=== PATIENT | male | born 1940 | race Caucasian/White ===

== ENCOUNTER 2018-12-11 19:29 | Emergency (ER) | payer MEDICARE, BC ==
[2018-12-11] MEDS ORDERED: Lidocaine 1% 10 ML MDV INJECT ONE (19:36)
[2018-12-11] MEDS ORDERED: Acetaminophen/HYDROcodone 325-5 MG Tab PO ONE (19:52)
--- NOTE | 2018-12-11 20:00 | EDM.PDOC ---
ED HPI GENERAL MEDICAL PROBLEM - General Chief Complaint: Laceration Stated Complaint: CUT THUMB ON RIGHT HAND Time Seen by Provider: 12/11/18 19:34 Source of Information: Reports: Patient History Limitations: Reports: No Limitations - History of Present Illness INITIAL COMMENTS - FREE TEXT/NARRATIVE: 78 y/o male presents to ER with cc right thumb laceration. He reports while using his table saw his hand slipped cutting his right thumb. He report having a tetanus in the past 3-4 years. He is right handed. He denies any numbness or tingling. He is accompanied by his . He is in no apparent distress. Onset: Today, Sudden Onset Date: 12/11/18 Onset Time: 19:00 Location: Reports: Upper Extremity, Right Quality: Reports: Ache Severity: Mild Improves with: Reports: None Worsens with: Reports: None Context: Reports: Trauma Associated Symptoms: Reports: No Other Symptoms Right Finger-Thumb Pain Score (Numeric/FACES): 8 - Related Data Allergies Allergy/AdvReac Type Severity Reaction Status Date / Time amoxicillin Allergy Other Verified 12/11/18 19:39 Penicillins Allergy Other Verified 12/11/18 19:39 Home Meds: Home Meds Aspirin 81 mg PO DAILY 08/08/18 [History] Ferrous Sulfate [Iron] 1 tab PO DAILY 08/08/18 [History] Multivitamin [Multivitamins] 1 each PO DAILY 08/08/18 [History] Ascorbate Calcium [Vitamin C] 500 mg PO DAILY 09/07/18 [History] Calcium Carbonate 500 mg PO DAILY 09/07/18 [History] Cinnamon Bark [Cinnamon] 1 tab PO DAILY 09/07/18 [History] [place]-3/DHA/Epa/Fish Oil [[place] 3 500 Softgel] 1,000 mg PO DAILY 09/07/18 [ History] Doxycycline [Vibramycin] 100 mg PO BID 7 Days #14 cap 12/11/18 [Rx] Hydrocodone/Acetaminophen [[place] 5-325 Tablet] 1 - 2 each PO Q6HR PRN 4 Days # 16 tablet 12/11/18 [Rx] Past Medical History Cardiovascular History: Reports: Heart Valve Replacement - Past Surgical History HEENT Surgical History: Reports: Tonsillectomy Cardiovascular Surgical History: Reports: Valve Replacement GI Surgical History: Reports: Appendectomy, Hernia, Inguinal, Hernia Repair/ Other Social & Family History - Tobacco Use Smoking Status *Q: Former Smoker Used Tobacco, but Quit: Yes Month/Year Tobacco Last Used: 40 years - Caffeine Use Caffeine Use: Reports: Coffee - Recreational Drug Use Recreational Drug Use: No ED ROS GENERAL - Review of Systems Review Of Systems: See Below Constitutional: Reports: No Symptoms HEENT: Reports: No Symptoms Respiratory: Reports: No Symptoms Cardiovascular: Reports: No Symptoms Endocrine: Reports: No Symptoms GI/Abdominal: Reports: No Symptoms : Reports: No Symptoms Musculoskeletal: Reports: Arm Pain, Other (right thumb) Skin: Reports: Wound, Other (right thumb laceration) Neurological: Reports: No Symptoms Psychiatric: Reports: No Symptoms Hematologic/Lymphatic: Reports: No Symptoms Immunologic: Reports: No Symptoms ED EXAM, SKIN/RASH Exam: See Below Exam Limited By: No Limitations General Appearance: Alert, WD/WN, No Apparent Distress Extremities: Normal Range of Motion, No Pedal Edema, Normal Capillary Refill, Other (right alatorre 4.0 thumb laceration, neurovascularly intact. ) Neurological: Alert, Oriented, CN II-XII Intact, Normal Cognition, Normal Gait Skin: Warm, Dry, Normal Color, No Rash, Other (right alatorre 4.0 cm thumb laceration. neurovascularly intact. ) ED SKIN PROCEDURES - Laceration/Wound Repair Right Upper Anterior Digit - 1st (Thumb) Lac/Wound length In cm: 4.0 Appearance: Irregular Distal NVT: Neuro & Vascular Intact Anesthetic Type: Local Local Anesthesia - Lidocaine (Xylocaine): 1% Plain Local Anesthetic Volume: 3cc Skin Prep: Providone-Iodine (Betadine) Exploration/Debridement/Repair: Wound Explored Closed with: Sutures Suture Size: 4-0 # of Sutures: 6 Suture Type: Prolene Sterile Dressing Applied: Nurse Tetanus Status Addressed: Yes Complications: No Course - Vital Signs Last Recorded V/S: Last Vital Signs Temp 98.2 F 12/11/18 19:36 Pulse 72 12/11/18 19:36 Resp 16 12/11/18 19:36 BP 176/95 H 12/11/18 19:36 Pulse Ox 99 12/11/18 19:36 - Orders/Labs/Meds Orders: Active Orders 24 hr Category Date Time Status Fingers Thumb Rt F5 [CR] Stat Exams 12/11/18 19:51 Taken Meds: Medications Discontinued Medications Generic Name Dose Route Start Last Admin Trade Name Freq PRN Reason Stop Dose Admin Hydrocodone Bitart/Acetaminophen 1 tab 12/11/18 19:52 12/11/18 20:05 [place] 325-5 Mg PO 12/11/18 19:53 1 tab ONETIME ONE Administration Lidocaine HCl 10 ml 12/11/18 19:36 12/11/18 19:51 Xylocaine 1% INJECT 12/11/18 19:37 10 ml ONETIME ONE Administration - Re-Assessments/Exams Free Text/Narrative Re-Assessment/Exam: 12/11/18 19:58 x-ray of right thumb revealed 78 y/o male presented to ER with cc right thumb laceration. He received [place] and laceration repair and his condition improved. I will discharge home with Doxycycline for outpatient antibiotic therapy and laceration repair instruction. Instructed him to follow up with his PCP in 7-10 days to have sutures removed. I will discharge home with [place] for pain. Instructed patient not to take this medication and drink, drive or operate machinery. He verbalized understanding and is comfortable with plan for discharge. He is stable at time of discharge. 12/11/18 21:34 Departure - Departure Time of Disposition: 21:32 Disposition: Home, Self-Care 01 Condition: Good Clinical Impression: Laceration of thumb with damage to nail Qualifiers: Encounter type: initial encounter Foreign body presence: without foreign body Laterality: right Qualified Code(s): S61.111A - Laceration without foreign body of right thumb with damage to nail, initial encounter - Discharge Information Prescriptions: Hydrocodone/Acetaminophen [[place] 5-325 Tablet] 1 - 2 each PO Q6HR PRN 4 Days # 16 tablet PRN Reason: thumb pain Doxycycline [Vibramycin] 100 mg PO BID 7 Days #14 cap Referrals: Krystal Ochoa, AUTOMATIC SERGING MACHINE OPERATOR [Primary Care Provider] - Forms: ED Department Discharge - My Orders Last 24 Hours: My Active Orders 12/11/18 19:51 Fingers Thumb Rt F5 [CR] Stat - Assessment/Plan Last 24 Hours: My Active Orders 12/11/18 19:51 Fingers Thumb Rt F5 [CR] Stat
--- NOTE | 2018-12-12 09:20 | CR ---
Right thumb: Three views centered to the right thumb were obtained. Comparison: No previous study. Soft tissue injury as well as small bony defect is noted off portion of the tuft of the distal thumb. Mild degenerative change is noted within the IP joint. No additional fracture or other bony abnormality is seen. Impression: 1. Injury within the distal thumb as noted above. 2. Slight degenerative change. Diagnostic code #3
== END 2018-12-11 21:46 | disposition home or self-care (01) ==
LOC: JD.ED 19:29
DX: S61.111A Laceration without foreign body of right thumb with damage to nail, initial encounter (principal); Z87.891 Personal history of nicotine dependence; Z79.82 Long term (current) use of aspirin; Z79.899 Other long term (current) drug therapy; W27.0XXA Contact with workbench tool, initial encounter
CPT/HCPCS: 12002; 73140; 99282; A9270; J2001; 99283

== ENCOUNTER 2018-12-20 20:12 | Emergency (ER) | payer MEDICARE, BC ==
--- NOTE | 2018-12-20 22:00 | EDM.PDOC ---
ED HPI GENERAL MEDICAL PROBLEM - General Chief Complaint: Wound Recheck Stated Complaint: THUMB LACERATION Time Seen by Provider: 12/20/18 20:33 Source of Information: Reports: Patient History Limitations: Reports: No Limitations - History of Present Illness INITIAL COMMENTS - FREE TEXT/NARRATIVE: 78 y/o male presents to ER for wound recheck of 6cm R thumb after having it repaired on 12/11/18 after cutting it using his table saw. The wound has opened up a bit since having sutures removed at the clinic here yesterday. There does look to have some redness and some mild pain. He denies any F/C, drainage from the wound. Neurovascularly intact, good ROM. He was put on Doxycycline 100mg BID x7 days and took it as prescribed, last dose was Monday. No other concerns at this time. - Related Data Allergies Allergy/AdvReac Type Severity Reaction Status Date / Time amoxicillin Allergy Other Verified 12/20/18 20:22 Penicillins Allergy Other Verified 12/20/18 20:22 Home Meds: Home Meds Hydrocodone/Acetaminophen [[place] 5-325 Tablet] 1 - 2 each PO Q6HR PRN 4 Days # 16 tablet 12/11/18 [Rx] Doxycycline [Vibramycin] 100 mg PO BID 10 Days #20 tab 12/20/18 [Rx] Mupirocin Oint [Bactroban Oint] 22 gm TP TID #1 tube 12/20/18 [Rx] Past Medical History Cardiovascular History: Reports: Heart Valve Replacement - Past Surgical History HEENT Surgical History: Reports: Tonsillectomy Cardiovascular Surgical History: Reports: Valve Replacement GI Surgical History: Reports: Appendectomy, Hernia, Inguinal, Hernia Repair/ Other Social & Family History - Tobacco Use Smoking Status *Q: Never Smoker Second Hand Smoke Exposure: No - Caffeine Use Caffeine Use: Reports: Coffee - Recreational Drug Use Recreational Drug Use: No ED ROS GENERAL - Review of Systems Review Of Systems: ROS reveals no pertinent complaints other than HPI. ED EXAM, SKIN/RASH Exam: See Below Exam Limited By: No Limitations General Appearance: Alert, WD/WN, No Apparent Distress Eye Exam: Bilateral Eye: Normal Inspection Peripheral Pulses: 3+: Radial (L), Radial (R) Extremities: Normal Range of Motion, Non-Tender, Normal Capillary Refill, Increased Warmth (right thumb), Redness (right thumb) Neurological: Alert, Oriented, CN II-XII Intact, Normal Cognition, Normal Gait, Normal Reflexes, No Motor/Sensory Deficits Skin: Warm, Dry, Erythema (right thumb), Increased Warmth (right thumb), Wound/ Incision (right thumb, healing from being sutured but looks to have opened up again) Location, Skin: Other (right thumb) Characteristics: Erythematous, Other Associated features: Warmth, Tenderness (mild), Swelling (mild ). No: Crusting , Weeping Course - Vital Signs Last Recorded V/S: Last Vital Signs Temp 98.1 F 12/20/18 20: Pulse 76 12/20/18 20: Resp 16 12/20/18 20: BP 148/89 H 12/20/18 20: Pulse Ox 95 12/20/18 20: Departure - Departure Time of Disposition: 21:54 Disposition: Home, Self-Care 01 Condition: Good Clinical Impression: Wound infection Laceration of thumb with damage to nail Qualifiers: Encounter type: subsequent encounter Foreign body presence: without foreign body Laterality: right Qualified Code(s): S61.111D - Laceration without foreign body of right thumb with damage to nail, subsequent encounter - Discharge Information *PRESCRIPTION DRUG MONITORING PROGRAM REVIEWED*: Not Applicable *COPY OF PRESCRIPTION DRUG MONITORING REPORT IN PATIENT STARLA: Not Applicable Prescriptions: Doxycycline [Vibramycin] 100 mg PO BID 10 Days #20 tab Mupirocin Oint [Bactroban Oint] 22 gm TP TID #1 tube Instructions: Wound Infection, [id number], How to Change Your Dressing, Easy- to-Read, Laceration Care, Adult, [id number] Referrals: Krystal Ochoa OFFICE COPY SELECTOR [Primary Care Provider] - Forms: ED Department Discharge Additional Instructions: You were seen in the ED today for thumb recheck after having sutures removed yesterday. At this time, the wound did seem to open up a little bit and there may be some infection left over. Will go ahead and prescribe you an antibiotic, Doxycycline 100mg twice per day for another 10 days, to cover for infection. Will also send prescription for Bactroban, which is a topical antibiotic you can put directly on the wound up to three times per day for 10 days. Recommend keeping the wound clean and covered when outside or when it may get dirty. Otherwise, open air will be good for it. Recommend follow up in the clinic in about 5 days. Please return to ED if new or worsening symptoms.
[2018-12-20] MEDS ORDERED: Doxycycline 100 MG Cap PO ONE (22:11)
== END 2018-12-20 22:15 | disposition home or self-care (01) ==
LOC: JD.ED 20:12
DX: S61.111D Laceration without foreign body of right thumb with damage to nail, subsequent encounter (principal); L08.9 Local infection of the skin and subcutaneous tissue, unspecified; Z88.1 Allergy status to other antibiotic agents; Z88.0 Allergy status to penicillin; Z79.899 Other long term (current) drug therapy; W27.0XXD Contact with workbench tool, subsequent encounter
CPT/HCPCS: 99282; A9270; 99283

== ENCOUNTER 2020-01-13 06:52 | Day surgery (SDC) | payer MEDICARE, BC ==
[~2020-01-13 06:52] MED LIST: Lactated Ringers 1,000 ML IV SCH; Lidocaine 1% 4 ML ONE; Lidocaine 1%/Sod Bicarbonate in NS 8.4% 1 ML Syringe IDERM PRN; Midazolam 1 MG/ML 2 ML SDV ONE; Propofol 200 MG/20 ML SDV ONE; Rocuronium 50 MG/5 ML Vial ONE; Sodium Chloride 0.9% 10 ML Syringe FLUSH PRN; fentaNYL 250 MCG/5 ML SDV ONE
[2020-01-13] MEDS ORDERED: Clindamycin Phosphate in D5W 900 MG in Premix Bag 1 BAG IV SCH ×2 (07:00)
--- NOTE | 2020-01-13 07:14 | PCM.PREANE ---
Preanesthetic Assessment - Anesthesia/Transfusion/Family Hx Anesthesia History: Prior Anesthesia Without Reaction Family History of Anesthesia Reaction: No Transfusion History: No Prior Transfusion(s) - Review of Systems General: No Symptoms Pulmonary: No Symptoms Cardiovascular: No Symptoms Gastrointestinal: No Symptoms Neurological: No Symptoms Other: Reports: None - Physical Assessment NPO Status Date: 01/12/20 NPO Status Time: 19:00 ASA Class: 2 Mental Status: Alert & Oriented x3 Airway Class: Mallampati = 1 Dentition: Reports: Normal Dentition Thyro-Mental Finger Breadths: 3 Mouth Opening Finger Breadths: 3 ROM/Head Extension: Full Lungs: Clear to Auscultation, Normal Respiratory Effort Cardiovascular: Regular Rate, Regular Rhythm, Murmurs (aortic valve replacement) - Allergies Allergies/Adverse Reactions: Allergies Allergy/AdvReac Type Severity Reaction Status Date / Time amoxicillin Allergy Other Verified 01/12/20 11:18 Penicillins Allergy Other Verified 01/12/20 11:18 - Acknowledgements Anesthesia Type Planned: General Anesthesia Pt an Appropriate Candidate for the Planned Anesthesia: Yes Alternatives and Risks of Anesthesia Discussed w Pt/Guardian: Yes Pt/Guardian Understands and Agrees with Anesthesia Plan: Yes PreAnesthesia Questionnaire Cardiovascular History: Reports: Heart Valve Replacement, High Cholesterol Respiratory History: Reports: None Gastrointestinal History: Reports: GERD, Other (See Below) Other Gastrointestinal History: elevated liver enzymes, jaundice, left inguinal hernia Genitourinary History: Reports: None SUPERVISOR TELLERS History: Reports: None Musculoskeletal History: Reports: None Neurological History: Reports: None Psychiatric History: Reports: None Endocrine/Metabolic History: Reports: Other (See Below) Other Endocrine/Metabolic History: elevated TSH Immunologic History: Reports: None Oncologic (Cancer) History: Reports: None Dermatologic History: Reports: Other (See Below) Other Dermatologic History: actinic keratosis, atypical skin lesion, finger laceration, rash, skin tag - Past Surgical History Head Surgeries/Procedures: Reports: None HEENT Surgical History: Reports: Tonsillectomy Cardiovascular Surgical History: Reports: Valve Replacement Respiratory Surgical History: Reports: None GI Surgical History: Reports: Appendectomy, Hernia, Inguinal, Hernia Repair/ Other Female Surgical History: Reports: None Male Surgical History: Reports: None Neurological Surgical History: Reports: None Musculoskeletal Surgical History: Reports: None Oncologic Surgical History: Reports: None Dermatological Surgical History: Reports: None - SUBSTANCE USE Smoking Status *Q: Former Smoker Recreational Drug Use History: No - HOME MEDS Home Medications: Home Meds Ascorbic Acid [Vitamin C] 500 mg PO DAILY 01/12/20 [History] Aspirin [Halfprin] 81 mg PO DAILY 01/12/20 [History] Calcium Carbonate [Calcium] 500 mg PO DAILY 01/12/20 [History] Cholecalciferol (Vitamin D3) [Vitamin D3] 5,000 unit PO DAILY 01/12/20 [History] Cinnamon Bark [Cinnamon] 500 mg PO DAILY 01/12/20 [History] Cod Liver Oil 1 cap PO DAILY 01/12/20 [History] Fish Oil/[place]-3 Fatty Acids [Fish Oil 1,000 MG] 1 gm PO DAILY 01/12/20 [History ] - CURRENT (IN HOUSE) MEDS Current Meds: Current Medications Lactated Ringer's (Ringers, Lactated) 1,000 mls @ 125 mls/hr IV ASDIRECTED KYM Stop: 01/13/20 23:00 Clindamycin Phosphate 900 mg/ (Premix) 50 mls @ 100 mls/hr IV ONETIME KYM Stop: 01/13/20 10:00 Lidocaine/Sodium Bicarbonate (Buffered Lidocaine 1% In Ns 8.4%) 0.25 ml IDERM ONETIME PRN PRN Reason: Prior to IV Start Stop: 01/13/20 23:00 Sodium Chloride (Saline Flush) 10 ml FLUSH ASDIRECTED PRN PRN Reason: Keep Vein Open Stop: 01/13/20 23:00 Discontinued Medications Fentanyl (Sublimaze) Confirm Administered Dose 250 mcg .ROUTE .STK-MED ONE Stop: 01/13/20 06:52 Lidocaine HCl (Xylocaine-Mpf 1%) Confirm Administered Dose 4 mls @ as directed .ROUTE .STK-MED ONE Stop: 01/13/20 06:51 Midazolam HCl (Versed 1 Mg/Ml) Confirm Administered Dose 2 mg .ROUTE .STK-MED ONE Stop: 01/13/20 06:53 Propofol (Diprivan 20 Ml) Confirm Administered Dose 200 mg .ROUTE .STK-MED ONE Stop: 01/13/20 06:51 Rocuronium [place] (Zemuron) Confirm Administered Dose 50 mg .ROUTE .STK-MED ONE Stop: 01/13/20 06:52
[2020-01-13] MEDS ORDERED: Bupivacaine 0.5%/EPINEPHrine 1:200,000 50 ML MDV ONE (07:30)
[2020-01-13] MEDS ORDERED: Propofol 200 MG/20 ML SDV ONE (08:41)
[2020-01-13] MEDS ORDERED: Ketorolac 30 MG/ML SDV ONE (09:07)
[2020-01-13] MEDS ORDERED: Ondansetron 4 MG/2 ML SDV ONE (09:07)
--- NOTE | 2020-01-13 09:33 | PCM48HPAN ---
Post Anesthesia Note - EVALUATION WITHIN 48HRS OF ANESTHETIC Vital Signs in Normal Range: Yes Patient Participated in Evaluation: Yes Respiratory Function Stable: Yes Airway Patent: Yes Cardiovascular Function Stable: Yes Hydration Status Stable: Yes Pain Control Satisfactory: Yes Nausea and Vomiting Control Satisfactory: Yes Mental Status Recovered: Yes Vital Signs: Last Vital Signs Temp 36.4 C 01/13/20 07:00 Pulse 56 L 01/13/20 07:00 Resp 16 01/13/20 07:00 BP 158/77 H 01/13/20 07:00 Pulse Ox 94 L 01/13/20 07:00
--- NOTE | 2020-01-13 09:42 | PCM.PRNOTE ---
- Free Text/Narrative Note: Date: 01/13/2020 Operation: open left inguinal hernia repair with permanent mesh placement Surgeon: Avinash Gilbert MD Operative findings: relatively small direct left inguinal hernia. Detailed Report: The patient was taken to the operating room and placed supine on the table. Time out was performed and general endotracheal anesthesia initiated. The abdomen and groin region were prepped and draped in sterile fashion. A total of 20 cc 0.5% marcaine with epinephrine was injected intradermally and in the subcutaneous space overlying the inguinal canal. A linear incision measuring 7 cm in length was made along the projection of the inguinal ligament, between the anterior superior iliac spine and the pubic tubercle. Dissection was carried down to the external oblique aponeurosis. An additional 10 cc of local anesthetic was injected just deep to the fibers, into the inguinal canal. A stab incision with the 15 blade scalpel through the aponeurosis, and Metzenbaum scissors were passed deep to the fibers and used to bluntly separate the underlying spermatic cord. Scissors were then used to sharply divide the roof of the inguinal canal, and clamps were placed on the fascia. Self-retaining retractors were placed to aid with optimal exposure, with the spermatic cord in view. The ilioinguinal nerve was identified and preserved. A large right angle clamp was passed deep to the cord at the level of the pubic tubercle, and a � inch gifty drain was placed, encircling the cord structures and hernia sac. Blunt dissection was used to split the cremasteric fibers anchoring the cord to the floor of the canal. The hernia sac was then carefully from the cord, working distal to proximal. This was a direct hernia, with fairly small, wide-mouthed sac. The sac was reduced to prepare for mesh reconstruction of the inguinal floor. Next, a piece of Progrip permanent lightweight mesh was cut to size and placed to reconstruct the floor of the inguinal canal. An anchoring prolene stitch was placed at the inferomedial aspect at Sav's ligament. Good medial and inferior overlap, 2 cm, at the tubercle was ensured. The lateral aspect of the mesh was then sewn to the shelving edge of the inguinal ligament with running prolene suture. The mesh was cut to permit passage of the cord, and the internal ring was recreated by stitching the mesh back together securely around the cord, with enough space to permit passage of the tip of the little finger. With the mesh laying nice and flat, the leaflets of the external oblique aponeurosis were closed using vicryl suture. [place] fascia was closed in identical fashion, and the skin was closed with an absorbable running subcuticular stitch and dressed with dermabond. Avinash Gilbert MD General Surgery
[2020-01-13] MEDS ORDERED: oxyCODONE 5 MG Tab PO PRN (09:49)
== END 2020-01-13 12:42 | disposition home or self-care (01) ==
LOC: JD.SDS 06:52
PROVIDERS: ATTEND Surgery
DX: K40.90 Unilateral inguinal hernia, without obstruction or gangrene, not specified as recurrent (principal); E78.5 Hyperlipidemia, unspecified; K21.9 Gastro-esophageal reflux disease without esophagitis; E78.00 Pure hypercholesterolemia, unspecified; Z79.82 Long term (current) use of aspirin; Z88.0 Allergy status to penicillin; Z79.899 Other long term (current) drug therapy; Z87.891 Personal history of nicotine dependence
CPT/HCPCS: 49505; A9270; C1781; J1885; J2001; J2250; J2405; J2704; J3010; J3490; J7120; 00830